=== PATIENT | female | born 1930 | race Caucasian/White ===

== ENCOUNTER 2017-04-08 17:24 | Emergency (ER) | payer OTHER ==
--- NOTE | 2017-04-08 17:25 | EDPHY ---
H & P HPI/ROS: HPI CHIEF COMPLAINT: Shingles pain HISTORY OF PRESENT ILLNESS: This patient very pleasant 87-year-old female, she is otherwise pretty healthy she developed shingles on Wednesday and saw her primary care doctor was placed on valacyclovir, prednisone, gabapentin, and recent addition of Vicodin. The patient presents emergency room as she is having ongoing pain. Her gabapentin dose was noted to be 100 mg three times daily. She presents emergency room,she states she has has ongoing pain. She denies any fever. Denies chest pain or shortness of breath. Denies vomiting. She has no eye pain or facial pain the pain is located right arm right chest and right back. These of the locations where she has shingles. Active lesions. She does tell me that the active lesions have improved somewhat but she still having significant nerve pain. Past Medical History: CHF, hypertension Past Surgical History: No recent surgery Social History: Lives locally, independent with her sister, . Denies drugs alcohol tobacco. Family History: Noncontributory ROS REVIEW OF SYSTEMS: A comprehensive 10 point review of systems is otherwise negative aside from elements mentioned in the history of present illness. Exam Constitutional appears well nontoxic, somewhat elderly, frail triage nursing summary reviewed, vital signs reviewed, awake/alert. Eyes normal conjunctivae and sclera, EOMI, PERRLA. HENT normal inspection, atraumatic, moist mucus membranes, no epistaxis, neck supple/ no meningismus, no raccoon eyes. Respiratory clear to auscultation bilaterally, normal breath sounds, no respiratory distress, no wheezing. Cardiovascular rate normal, regular rhythm, no murmur, no edema, distal pulses normal. Gastrointestinal soft, non-tender, no rebound, no guarding, normal bowel sounds, no distension, no pulsatile mass. Genitourinary no CVA tenderness. Musculoskeletal no midline vertebral tenderness, full range of motion, no calf swelling, no tenderness of extremities, no meningismus, good pulses, neurovascularly intact. Skin shingles noted right arm, right back, right chest with blisters, the blisters are mainly not full. There appears to be no super infection. No weepage or crusting or pus. Neurologic awake, alert and oriented x 3, AAOx3, moves all 4 extremities equally, motor intact, sensory intact, CN II-XII intact, normal cerebellar, normal vision, normal speech. Psychiatric normal mood/affect. Heme/Lymph/Immune no lymphadenopathy. Differential Diagnosis: Includes but is not limited to in a particular order acute shingles pain, active shingles, neuropathy, super infection of the shingles Medical Decision Making: Plan for this patient I did review her medications she is on gabapentin 100 mg three times daily. I feel that she should increase this to 300 mg three times daily however I did warn her that can make her very drowsy and sleepy. Additionally she is on Vicodin taking 1-2 doses a day explained that she can take up to 3 doses a day and even double it. I do not feel that she needs any blood work at this time she appears well nontoxic no fever. Additionally I do not feel that she is super infection. I do recommend she continues taking her Valcyclovir 3 times a day. 1000 mg do not miss her dose. Additionally have provided her referral to Infectious Disease if this continues to get worse or she is not improving. She understands. Return precautions discussed. Source: Patient Constitutional: Initial Vital Signs Temperature (C) 36.6 C 04/08/17 17:30 Heart Rate 54 L 04/08/17 17:30 Respiratory Rate 18 04/08/17 17:30 Blood Pressure 119/85 H 04/08/17 17:30 O2 Sat (%) 94 04/08/17 17:30 O2 Delivery Mode Room Air Allergies/Adverse Reactions: codine Allergy (Uncoded 01/19/17 14:34) Home Medications: Medication Instructions Recorded Amiodarone 150 mg/100 ml-D5w 04/08/17 GABAPENTIN 04/08/17 Levothyroxine 04/08/17 Methylprednisolone 04/08/17 Metoprolol Succinate Xr 04/08/17 Valacyclovir 04/08/17 Departure - Departure Disposition: Home, Routine, Self-Care Clinical Impression: Shingles Qualifiers: Herpes zoster complications: without complications Qualified Code(s): B02.9 - Zoster without complications Condition: Good Instructions: Shingles (ED) Additional Instructions: 1. I would increase your gabapentin from 100 mg 3 times a day to 200 to 300 mg THREE times a day this can make you sleepy and drowsy. 2. Additionally you can take an extra dose of Vicodin during the day if need be. Again this can make her drowsy and nauseous. 3. Continue your valacyclovir 1000 mg 3 times a day do not miss any doses. 4. Continue your prednisone. 5. Return to the emergency room if you have worsening symptoms questions or concerns. 6. If this is not getting better or your pain becomes more severe you do not feel well follow up with Infectious Disease. As well as your primary care doctor. Referrals: Cecy Bustamante MD [Primary Care Provider] - As per Instructions La Nena Reyes MD [Medical Doctor] - As per Instructions
[2017-04-08 17:34] VITALS: BP 119/85; PULSE 54; RESP 18; TEMP 98; O2SAT 94
== END 2017-04-08 18:18 | disposition home or self-care (01) ==
LOC: CED 17:24
DX: B02.9 Zoster without complications (principal); I11.0 Hypertensive heart disease with heart failure; I50.9 Heart failure, unspecified

== ENCOUNTER → 2017-07-15 | Outpatient (CLI) | payer OTHER | LOC: FIMAGING 06:37 | PROVIDERS: ATTEND Psychiatry & Neurology Neurology | DX: M54.12 Radiculopathy, cervical region (principal); M54.16 Radiculopathy, lumbar region; M48.02 Spinal stenosis, cervical region; M50.321 Other cervical disc degeneration at C4-C5 level; M50.322 Other cervical disc degeneration at C5-C6 level; M50.323 Other cervical disc degeneration at C6-C7 level; G95.20 Unspecified cord compression; M25.78 Osteophyte, vertebrae; E04.2 Nontoxic multinodular goiter ==

== ENCOUNTER → 2017-09-10 | Outpatient (CLI) | payer OTHER | LOC: FIMAGING 09:52 | PROVIDERS: ATTEND Physician Assistant Medical | DX: I48.91 Unspecified atrial fibrillation (principal); J98.4 Other disorders of lung; J90 Pleural effusion, not elsewhere classified; Z79.899 Other long term (current) drug therapy ==

== ENCOUNTER → 2017-12-24 | Outpatient (CLI) | payer OTHER | LOC: FIMAGING 11:49 | PROVIDERS: ATTEND Physical Medicine & Rehabilitation | DX: S46.012A Strain of muscle(s) and tendon(s) of the rotator cuff of left shoulder, initial encounter (principal); M75.32 Calcific tendinitis of left shoulder; M24.812 Other specific joint derangements of left shoulder, not elsewhere classified ==